=== PATIENT | male | born 1965 | race Two or more races ===

== ENCOUNTER 2024-07-20 12:33 | Emergency (ER) | payer BC ==
[~2024-07-20] VITALS: Ht 177.8 cm; Wt 77.1 kg
[2024-07-20] MEDS ORDERED: CARVEDILOL25 M1 PO (13:17)
[2024-07-20] MEDS ORDERED: AMLODIPINE BESY10 MG PO (13:17)
== END 2024-07-20 15:26 | disposition home or self-care (01) ==
LOC: ER 12:35
DX: S67.20XA Crushing injury of unspecified hand, initial encounter (principal); X58.XXXA Exposure to other specified factors, initial encounter; Y93.89 Activity, other specified; Y92.89 Other specified places as the place of occurrence of the external cause